=== PATIENT | female | born 2000 | race Caucasian/White ===

== ENCOUNTER 2024-12-26 10:23 | Outpatient (AMB) | payer MEDICAID, SELFPAY ==
[2024-12-26 10:57] VITALS: BP 106/69; PULSE 85; RESP 18; TEMP 36; O2SAT 96; BMI 27.3
--- NOTE | 2024-12-26 10:57 | OBCLNT_ITS ---
Vital Signs 12/26/24 10:57 Height 1.6 m Height Method Stated Weight 69.967 kg Weight Measurement Method Standing Scale BMI 27.3 BP 106/69 Blood Pressure Source Automatic Cuff Blood Pressure Location Left Upper Arm Position Sitting Respiration 18 Pulse 85 Pulse Source Monitor Temp 96.8 F Temp Source Oral Pulse Oximetry (%) 96 Oxygen Delivery Method Room Air Allergies/Home Meds Allergies & Medications Allergies No Known Allergies Allergy (Verified 12/26/24 10:58) Medication Reconciliation [place] 5 mg-325 mg tablet (hydrocodone-acetaminophen) 1 tab PO Q6H PRN pain #30 tabs 10/05/20 [Rx Confirmed 12/26/24] docusate sodium 100 mg capsule (Colace) 100 mg PO BID #60 caps 10/05/20 [Rx Confirmed 12/26/24] Intake Visit Data Collection New Patient or Established: New Patient (never been to [facility]) Reason for Visit:: OBI/transfer Seen by Clinical Staff ONLY (RN/MA): No Instrument Processing Tech Required: No Do You Feel Safe at Home: Yes Authorities Contacted: N/A PCP or OBGYN visit in last 3 months: No Hx Now: Yes Are you currently on any form of Control: No Last menstrual period: 04/26/24 Pain Present Currently: No Pain Scale Used: Schwab-Barcenas/Numerical Pain scale:: 0 Smoking Status Smoking Status: Never smoker Questionnaires Covid-19 Vaccine Questionnaire Has patient been vacinated for Covid-19 Have you been vacinated for Covid-19: Yes PHQ-9 PHQ-2 Over the last 2 weeks, how often have you been bothered by any of the following problems? 1. Little interest or pleasure in doing things: not at all 2. Feeling down, depressed, or hopeless: not at all Total score: 0 PHQ-9 3. Trouble falling or staying asleep, or sleeping too much: Not at all 4. Feeling tired or having little energy: Not at all 5. Poor appetite or overeating: Not at all 6. Feeling bad about yourself - or that you are a failure or have let yourself or your family down: Not at all 7. Trouble concentrating on things, such as reading the newspaper or watching television: Not at all 8. Moving or speaking so slowly that other people could have noticed? - Or the opposite - being so fidgety or restless that you have been moving around a lot more than usual: not at all 9. Thoughts that you would be better off or of hurting yourself in some way: Not at all Total score: 0 If you checked off any problems, how difficult have these problems made it for you to do your work, take care of things at home, or get along with other people?: not difficult at all Source: Developed by Drs. Farhat Galvan, Geno Munoz, Onur Negrete and colleagues, with an educational heri from [employer]. Depression screen completed yes Social History Living Situation History Marital Status: Lives With: Family Housing: House Tobacco History Smoking Status: Never smoker Second Hand Smoke Exposure: No Alcohol History Alcohol Intake: Never Domestic Abuse History Do You Feel Safe at Home: Yes Past Medical History Past Medical History Have you ever been diagnosed with any of the following: Cardiology Problems Congestive Heart Failure: No Respiratory Problems Chronic Obstructive Pulmonary Disease (COPD): No Genital/Urinary Problems Renal Disease: No Reproductive Problems Pelvic Inflammatory Disease: No Endocrine Problems Diabetes Mellitus Type 1: No Diabetes Mellitus Type 2: No Other Problems Anesthesia Reactions: No MRSA: No Clostridium Difficile: No Cancer: No History of Present Illness HPI Narrative 24-year-old 2 para 1 for initial OB appointment. Patient is been followed at her first visit was in [place] and then she moved to [place] and had several visits in [place]. Her last. Was April 26, 2024. This gave a due date of 01/31/25. First ultrasound in [place] was August 13, 2024. Baby measured 15 weeks 5. And this gave due date January 29, 2025. Patient reports movement. Denies signs symptoms of labor. Denies leaking fluid. She reports that she is sure about her due date. Patient denies chronic illness. Denies surgeries. Denies social habits. Her first child 2 years old. That was a normal vaginal at term. Uncomplicated. She reports her periods are monthly lasting 7 days. Patient is currently taking vitamins. She had a Tdap during her care in [place]. No labs were available except RPR showed negative tPA. And on ultrasound showed no previa and normal fluid. father of baby and most of family in [place] OB Initial Visit Menstrual History Menstrual reliability: definite Flow: normal Menstrual regularity: regular Monthly: Yes Age at menarche: 11 On control pills at conception: No Associated symptoms (LMP): Reports nausea and fatigue OB History : 2 Para: 1 Infection History & Risk Evaluation History of STDs: none HIV risk evaluation: low risk Hepatitis B risk evaluation: low risk Patient or partner has history of Genital Herpes: No Varicella/chicken pox status: immunized Genetic Screening & History Symptoms since LMP: tired, increased stress Genetic Screening/Teratology Counseling - Includes patient, baby's father, or anyone in either family with: 1. Patient's age 35 years or older as of estimated date of delivery: No 2. Thalassemia (Sudanese, English, Mediterranean, or Background); MCV less than 80: No 3. Neural Tube Defect (Meningomyelocele, Spina Bifida, or Anencephaly): No 4. Congenital Heart Defect: No 5. Down Syndrome: No 6. Rip-Sachs (Ashkenazi Rastafari, Cajun, Luxembourgish [place]): No 7. Kristin Disease (Ashkenazi Rastafari): No 8. Familial Dysautonomia (Ashkenazi Rastafari): No 9. Sickle Cell Disease or Trait (): No 10. Hemophilia or other blood disorders: No 11. Muscular Dystrophy: No 12. Cystic Fibrosis: No 13. [facility] Chorea: No 14. Mental Retardation/Autism: No 15. Other inherited genetic or chromosomal disorder: No 16. Maternal Metabolic Disorder (EG,TYPE 1 Diabetes, PKU): No 17. Patient or baby's father had a child with defects not listed above: No 18. Recurrent loss or a stillbirth: No 19. Medications (including supplements, vitamins, herbs or otc drugs)/illicit/recreational drugs/alcohol since last menstrual period: No 20. Any other: No Infection History 1. Live with someone with TB or exposed to TB: No 2. Rash or viral illness since last menstrual period: No 3. Hepatitis B,C: No Other (see comments) Source: [employer] Review of Systems Review of Systems Systems Reviewed: All systems reviewed, normal except as documented Constitutional Constitutional: Reports fatigue Gastrointestinal Gastrointestinal: Reports nausea Endocrine Endocrine: Reports fatigue Exam Narrative Physical exam: FH: 35, FHT 151, vertex. no genital lesion, vagina pink, no discharge General Limitations: no limitations General Appearance: alert, in no apparent distress, comfortable, cooperative, healthy appearing, well developed and well groomed Chest Chest inspection: Present normal inspection and symmetric chest wall rise Resp Respiratory exam: Present normal lung sounds bilaterally Card Cardiovascular exam: Present regular rate, normal rhythm and normal heart sounds Abdominal Abdominal exam: Present soft and normal bowel sounds Psych Psychiatric exam: Present normal affect and normal mood Assessment & Plan Diagnosis / Problem List (1) Normal in multigravida in third trimester: Status: Acute Plan Schedule maternal- medicine sono for growth and evaluate anatomy. OB panel today with 1 hour GTT, hemoglobin A1c, carrier screen, NIPT. Discussed labor precautions and kick count. Return week OB check, GBS today Office Procedures OB Clinic LOC & Office Proc's Nursing/Assessment Patient Status: Initial/New Patient OB Clinic Nursing Assessment: BP Monitoring, Medication Reconciliation, Update PMH in EMR and Vital Signs OB Clinic Coordination of Care: Consent,records obtained, informed consent, Education Simp Pt/Fam, Lab and Imaging orders and Staff clarify orders Special Needs: Heart tones New Patient Charge New Patient Point Assignment: [id number] Established Patient Charge Established Patient Point Charge: EP Level 4 (120-155)
== END 2024-12-26 11:15 | disposition home or self-care (01) ==
LOC: HODSOBC 10:23
PROVIDERS: Supervising Provider Advanced Practice Midwife; Visit Provider Advanced Practice Midwife
DX: Z34.83 Encounter for supervision of other normal pregnancy, third trimester (principal); Z3A.00 Weeks of gestation of pregnancy not specified
CPT/HCPCS: 99214; G0463

== ENCOUNTER 2025-01-01 13:02 | Outpatient (AMB) | payer MEDICAID, SELFPAY ==
[2025-01-01 13:22] VITALS: BP 110/68; PULSE 76; RESP 18; TEMP 36.2; O2SAT 99; BMI 27.3
--- NOTE | 2025-01-01 13:22 | OBCLNT_ITS ---
Vital Signs 01/01/25 13:22 Height 1.6 m Height Method Stated Weight 70.023 kg Weight Measurement Method Standing Scale BMI 27.3 BP 110/68 Blood Pressure Source Automatic Cuff Blood Pressure Location Left Upper Arm Position Sitting Respiration 18 Pulse 76 Pulse Source Monitor Temp 97.2 F Temp Source Oral Pulse Oximetry (%) 99 Oxygen Delivery Method Room Air Allergies/Home Meds Allergies & Medications Allergies No Known Allergies Allergy (Verified 01/01/25 13:23) Medication Reconciliation [place] 5 mg-325 mg tablet (hydrocodone-acetaminophen) 1 tab PO Q6H PRN pain #30 tabs 10/05/20 [Rx Confirmed 01/01/25] docusate sodium 100 mg capsule (Colace) 100 mg PO BID #60 caps 10/05/20 [Rx Confirmed 01/01/25] Intake Visit Data Collection New Patient or Established: Established Patient (seen at [facility] within 3 years) Reason for Visit:: obc Seen by Clinical Staff ONLY (RN/MA): No Animal Care Technician Required: No Do You Feel Safe at Home: Yes Authorities Contacted: N/A PCP or OBGYN visit in last 3 months: Yes Date of Last PCP or OBGYN visit: 12/26/24 Hx Now: Yes Are you currently on any form of Control: No Pain Present Currently: No Pain Scale Used: Schwab-Barcenas/Numerical Pain scale:: 0 Smoking Status Smoking Status: Never smoker Questionnaires Covid-19 Vaccine Questionnaire Has patient been vacinated for Covid-19 Have you been vacinated for Covid-19: Yes PHQ-9 PHQ-2 Over the last 2 weeks, how often have you been bothered by any of the following problems? 1. Little interest or pleasure in doing things: not at all 2. Feeling down, depressed, or hopeless: not at all Total score: 0 PHQ-9 3. Trouble falling or staying asleep, or sleeping too much: Not at all 4. Feeling tired or having little energy: Not at all 5. Poor appetite or overeating: Not at all 6. Feeling bad about yourself - or that you are a failure or have let yourself or your family down: Not at all 7. Trouble concentrating on things, such as reading the newspaper or watching television: Not at all 8. Moving or speaking so slowly that other people could have noticed? - Or the opposite - being so fidgety or restless that you have been moving around a lot more than usual: not at all 9. Thoughts that you would be better off or of hurting yourself in some way: Not at all Total score: 0 If you checked off any problems, how difficult have these problems made it for you to do your work, take care of things at home, or get along with other people?: not difficult at all Source: Developed by Drs. Farhat Galvan, Geno Munoz, Onur Negrete and colleagues, with an educational heri from [employer]. Depression screen completed yes Social History Living Situation History Lives With: Family Housing: House Tobacco History Smoking Status: Never smoker Second Hand Smoke Exposure: No Alcohol History Alcohol Intake: Never Domestic Abuse History Do You Feel Safe at Home: Yes Past Medical History Past Medical History Have you ever been diagnosed with any of the following: Cardiology Problems Congestive Heart Failure: No Respiratory Problems Chronic Obstructive Pulmonary Disease (COPD): No Genital/Urinary Problems Renal Disease: No Reproductive Problems Pelvic Inflammatory Disease: No Endocrine Problems Diabetes Mellitus Type 1: No Diabetes Mellitus Type 2: No Other Problems Anesthesia Reactions: No MRSA: No Clostridium Difficile: No Cancer: No Visit OB Visit Log OB Flowsheet Initial Weight: Not Recorded Date -?-?-?-?-?-?-?-?-?-?-?-?- EGA Weight Edema CTX Effacement BP Fundal ht Pres Dilation Effacement Station Visit Note Alb Glu FHR Mov 12/26/24 -?-?-?-?-?-?-?-?-?-?-?-?- 34w 6d 69.967 kg absent absent 106/69 35 cephalic 24-year-old 2 para 1 for first OB visit at [facility] OB clinic. Patient is 35 weeks 5 by LMP and sono. Reports movement. Denies signs symptoms of labor. Baby is active per patient. She has had no complaints thus far. I did a OB panel with NIPT, hemoglobin A1c and 1 hour today. Patient scheduled for MFM appointment with Dr. Mosqueda. Discussed labor precautions and kick c ount. Return week OB check. GBS was done today 151 active 01/01/25 -?-?-?-?-?-?-?-?-?-?-?-?- 35w 5d 70.023 kg absent absent 110/68 35 cephalic fetus active, no labor complaints, la s pending, MFM appointment pending. denies leking or bleeding. fkc bid, f/u on labs and sono. patient prefers rtc 2 week 152 active YAMILEX Calculator Estimated Delivery Date Method Current WG Current Estimate 01/31/25 LMP (Certain) 35w 5d Other Estimates 01/30/25 Ultrasound #1 35w 6d Assessment & Plan Diagnosis / Problem List (1) Normal in multigravida in third trimester: Status: Acute Plan labor precaution, fkc bid. f/u on mfm appointment. continue pnv, rtc 2 week Additional Plan Follow Up: 2 Weeks (obc) Office Procedures OB Clinic LOC & Office Proc's Nursing/Assessment Patient Status: Established Patient OB Clinic Nursing Assessment: BP Monitoring, Medication Reconciliation, Update PMH in EMR and Vital Signs OB Clinic Coordination of Care: Consent,records obtained, informed consent, Education Simp Pt/Fam and Staff clarify orders Special Needs: Heart tones Established Patient Charge Established Patient Point Assignment: 105 Established Patient Point Charge: EP Level 3 (80-115)
== END 2025-01-01 13:46 | disposition home or self-care (01) ==
LOC: HODSOBC 13:02
PROVIDERS: Supervising Provider Advanced Practice Midwife; Visit Provider Advanced Practice Midwife
DX: Z34.83 Encounter for supervision of other normal pregnancy, third trimester (principal); Z3A.35 35 weeks gestation of pregnancy
CPT/HCPCS: 99213; G0463

== ENCOUNTER 2025-01-15 13:22 | Outpatient (AMB) | payer MEDICAID, SELFPAY ==
--- NOTE | 2025-01-15 13:42 | OBCLNT_ITS ---
Vital Signs 01/15/25 13:43 Height 1.6 m Height Method Stated Weight 71.384 kg Weight Measurement Method Standing Scale BMI 27.8 BP 112/65 Blood Pressure Source Automatic Cuff Blood Pressure Location Right Upper Arm Position Sitting Respiration 18 Pulse 72 Pulse Source Monitor Temp 98.3 F Temp Source Temporal Artery Scan Pulse Oximetry (%) 99 Oxygen Delivery Method Room Air Allergies/Home Meds Allergies & Medications Allergies No Known Allergies Allergy (Verified 01/15/25 13:45) Medication Reconciliation vits no.126-ferrous fum 28 mg iron-folic acid 800 mcg tablet (Classic ) tab PO 01/15/25 [History Confirmed 01/15/25] Intake Visit Data Collection New Patient or Established: Established Patient (seen at [facility] within 3 years) Reason for Visit:: obc Do You Feel Safe at Home: Yes Authorities Contacted: N/A PCP or OBGYN visit in last 3 months: Yes Pain Present Currently: No Smoking Status Smoking Status: Never smoker Questionnaires PHQ-9 PHQ-2 Over the last 2 weeks, how often have you been bothered by any of the following problems? 1. Little interest or pleasure in doing things: not at all 2. Feeling down, depressed, or hopeless: not at all Total score: 0 PHQ-9 8. Moving or speaking so slowly that other people could have noticed? - Or the opposite - being so fidgety or restless that you have been moving around a lot more than usual: not at all Source: Developed by Drs. Farhat Galvan, Geno Munoz, Onur Negrete and colleagues, with an educational heri from [employer]. 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 Patient is 35 weeks 5 by LMP and sono. Reports movement. Denies signs symptoms of labor. Baby is active per patient. She has had no complaints thus far. I did a OB panel with NIPT, hemoglobin A1c and 1 hour today. Patient scheduled for MFM appointment with Dr. Mosqueda. Discussed labor precautions and kick count. Return week OB check. GBS was done today 151 active 01/01/25 -?-?-?-?-?-?-?-?-?-?-?-?- 35w 5d 70.023 kg absent absent 110/68 35 cephalic fetus active, no labor complaints, la s pending, MFM appointment pending. denies leking or bleeding. fkc bid, f/u on labs and sono. patient prefers rtc 2 week 152 active 01/15/25 -?-?-?-?-?-?-?-?-?-?-?-?- 37w 5d 71.384 kg absent occasional 112/65 36 cepha lic fetus active. increased pressure, no leaking or bleeding. dicuss+GBS. discuss labor precaution, fkc bid. rtc 1 week ob check 145 active YAMILEX Calculator Estimated Delivery Date Method Current WG Current Estimate 01/31/25 LMP (Certain) 37w 5d Other Estimates 01/30/25 Ultrasound #1 37w 6d Notes Visit Date: 01/15/25 Last Updated by: Dede Adhikari CNM 24 yo . LMP 04/26/24. EDC 01/31/25. GBS+, B+, abs-, rpr;;nr, rub imm, hbsag-,hiv-,HC-, 1hrgtt:107, NIPT and carrier screen- Office Procedures OB Clinic LOC & Office Proc's Nursing/Assessment Patient Status: Established Patient OB Clinic Nursing Assessment: BP Monitoring, Medication Reconciliation, Update PMH in EMR and Vital Signs OB Clinic Coordination of Care: Complex Care and Chronic Disease 1-5, Education Complex Pt/Fam, Consent,records obtained, informed consent and Staff clarify orders Special Needs: Heart tones Established Patient Charge Established Patient Point Assignment: 135 Established Patient Point Charge: EP Level 4 (120-155) Assessment & Plan Diagnosis / Problem List (1) Normal in multigravida in third trimester: Status: Acute Plan discuss labor precaution, fkc bid, discuss + gbs. comfort measure for pelvic pressure, rtc 1 week Additional Plan Follow Up: 1 Week (obc)
[2025-01-15 13:43] VITALS: BP 112/65; PULSE 72; RESP 18; TEMP 36.8; O2SAT 99; BMI 27.8
== END 2025-01-15 14:12 | disposition home or self-care (01) ==
LOC: HODSOBC 13:22
PROVIDERS: Supervising Provider Advanced Practice Midwife; Visit Provider Advanced Practice Midwife
DX: O09.893 Supervision of other high risk pregnancies, third trimester (principal); Z3A.37 37 weeks gestation of pregnancy; O99.820 Streptococcus B carrier state complicating pregnancy
CPT/HCPCS: 81001; 99214; G0463

== ENCOUNTER 2025-01-23 10:27 | Outpatient (AMB) | payer MEDICAID, SELFPAY ==
[2025-01-23 10:34] VITALS: BP 108/69; PULSE 91; RESP 20; TEMP 36.4; O2SAT 96; BMI 28.0
--- NOTE | 2025-01-23 10:34 | OBCLNT_ITS ---
Vital Signs 01/23/25 10:34 Height 1.6 m Height Method Stated Weight 71.894 kg Weight Measurement Method Standing Scale BMI 28.0 BP 108/69 Blood Pressure Source Automatic Cuff Blood Pressure Location Right Upper Arm Position Sitting Respiration 20 Pulse 91 Pulse Source Monitor Temp 97.6 F Temp Source Oral Pulse Oximetry (%) 96 Oxygen Delivery Method Room Air Allergies/Home Meds Allergies & Medications Allergies No Known Allergies Allergy (Verified 01/23/25 10:35) Medication Reconciliation vits no.126-ferrous fum 28 mg iron-folic acid 800 mcg tablet (Classic ) tab PO 01/15/25 [History Confirmed 01/23/25] Intake Visit Data Collection New Patient or Established: Established Patient (seen at [facility] within 3 years) Reason for Visit:: CARE Seen by Clinical Staff ONLY (RN/MA): No Hvac Operations Technician Required: No Do You Feel Safe at Home: Yes Authorities Contacted: N/A PCP or OBGYN visit in last 3 months: Yes Hx Now: Yes Are you currently on any form of Control: No Pain Present Currently: Yes Pain Location: Unable to identify (PELVIC ) Pain Scale Used: Schwab-Barcenas/Numerical Pain scale:: 4 Smoking Status Smoking Status: Never smoker Questionnaires Covid-19 Vaccine Questionnaire Has patient been vacinated for Covid-19 Have you been vacinated for Covid-19: No PHQ-9 PHQ-2 Over the last 2 weeks, how often have you been bothered by any of the following problems? 1. Little interest or pleasure in doing things: not at all 2. Feeling down, depressed, or hopeless: not at all Total score: 0 PHQ-9 3. Trouble falling or staying asleep, or sleeping too much: Not at all 4. Feeling tired or having little energy: Not at all 5. Poor appetite or overeating: Not at all 6. Feeling bad about yourself - or that you are a failure or have let yourself or your family down: Not at all 7. Trouble concentrating on things, such as reading the newspaper or watching television: Not at all 8. Moving or speaking so slowly that other people could have noticed? - Or the opposite - being so fidgety or restless that you have been moving around a lot more than usual: not at all 9. Thoughts that you would be better off or of hurting yourself in some way: Not at all Total score: 0 Source: Developed by Drs. Farhat Galvan, Geno Munoz, Onur Negrete and colleagues, with an educational heri from [employer]. 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 Patient is 35 weeks 5 by LMP and sono. Reports movement. Denies signs symptoms of labor. Baby is active per patient. She has had no complaints thus far. I did a OB panel with NIPT, hemoglobin A1c and 1 hour today. Patient scheduled for MFM appointment with Dr. Mosqueda. Discussed labor precautions and kick count. Return week OB check. GBS was done today 01/01/25 -?-?-?-?-?-?-?-?-?-?-?-?- 35w 5d 70.023 kg 110/68 absent cephalic 35 152 active fetus active, no labor complaints, la s pending, MFM appointment pending. denies leking or bleeding. fkc bid, f/u on labs and sono. patient prefers rtc 2 week 01/15/25 -?-?-?-?-?-?-?-?-?-?-?-?- 37w 5d 71.384 kg 112/65 occasional cephalic 36 145 active fetus active. increased pressure, no leaking or bleeding. dicuss+GBS. discuss labor precaution, fkc bid. rtc 1 week ob check 01/23/25 -?-?-?-?-?-?-?-?-?-?-?-?- 38w 6d 71.894 kg 108/69 occasional cephalic 37 140 active 0 -2 increased pressure, no leaking or bleeding, fetus active/palpated, no ob complaints discuss labor precaution, fkc bid. comfort measure for early labor, review GBS+, rtc 1 week, ER precaution given YAMILEX Calculator Estimated Delivery Date Method Current WG Current Estimate 01/31/25 LMP (Certain) 38w 6d Other Estimates 01/30/25 Ultrasound #1 39w 0d Notes Visit Date: 01/15/25 Last Updated by: Dede Adhikari CNM 24 yo . LMP 04/26/24. EDC 01/31/25. GBS+, B+, abs-, rpr;;nr, rub imm, hbsag-,hiv-,HC-, 1hrgtt:107, NIPT and carrier screen- Office Procedures OB Clinic LOC & Office Proc's Nursing/Assessment Patient Status: Established Patient OB Clinic Nursing Assessment: Medication Reconciliation, Update PMH in EMR and Vital Signs OB Clinic Coordination of Care: Complex Care and Chronic Disease 1-5, Consent,records obtained, informed consent, Education Simp Pt/Fam, Lab and Imaging orders, Results/Orders obtained and Staff clarify orders Special Needs: Heart tones Established Patient Charge Established Patient Point Assignment: 135 Established Patient Point Charge: EP Level 4 (120-155) Assessment & Plan Diagnosis / Problem List (1) Normal in multigravida in third trimester: Status: Acute Plan discuss labor precaution, fkc bid, ER precaution discussed, discuss comfort measure for early labor, reviewed GBS+, hydrate, rtc 1 week ob check Additional Plan Follow Up: 1 Week (obc)
== END 2025-01-23 10:53 | disposition home or self-care (01) ==
LOC: HODSOBC 10:27
PROVIDERS: Supervising Provider Advanced Practice Midwife; Visit Provider Advanced Practice Midwife
DX: Z34.83 Encounter for supervision of other normal pregnancy, third trimester (principal); Z3A.38 38 weeks gestation of pregnancy
CPT/HCPCS: 99214; G0463

== ENCOUNTER 2025-02-03 11:09 | Outpatient (AMB) | payer MEDICAID, SELFPAY ==
[2025-02-03 11:32] VITALS: BP 106/64; PULSE 75; RESP 18; TEMP 36.2; O2SAT 98; BMI 28.3
--- NOTE | 2025-02-03 11:32 | AMB.OBVISIT ---
Vital Signs 02/03/25 11:32 Height 1.6 m Height Method Stated Weight 72.575 kg Weight Measurement Method Standing Scale BMI 28.3 BP 106/64 Blood Pressure Source Automatic Cuff Blood Pressure Location Left Upper Arm Position Sitting Respiration 18 Pulse 75 Pulse Source Monitor Temp 97.2 F Temp Source Oral Pulse Oximetry (%) 98 Oxygen Delivery Method Room Air Allergies/Home Meds Allergies & Medications Allergies No Known Allergies Allergy (Verified 02/03/25 11:33) Medication Reconciliation vits no.126-ferrous fum 28 mg iron-folic acid 800 mcg tablet (Classic ) tab PO 01/15/25 [History Confirmed 02/03/25] Intake Visit Data Collection New Patient or Established: Established Patient (seen at [facility] within 3 years) Reason for Visit:: OBC Seen by Clinical Staff ONLY (RN/MA): 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 1. Little interest or pleasure in doing things: not at all 2. Feeling down, depressed, or hopeless: not at all Total score: 0 PHQ-9 3. Trouble falling or staying asleep, or sleeping too much: Not at all 4. Feeling tired or having little energy: Not at all 5. Poor appetite or overeating: Not at all 6. Feeling bad about yourself - or that you are a failure or have let yourself or your family down: Not at all 7. Trouble concentrating on things, such as reading the newspaper or watching television: Not at all 8. Moving or speaking so slowly that other people could have noticed? - Or the opposite - being so fidgety or restless that you have been moving around a lot more than usual: not at all 9. Thoughts that you would be better off or of hurting yourself in some way: Not at all Total score: 0 If you checked off any problems, how difficult have these problems made it for you to do your work, take care of things at home, or get along with other people?: not difficult at all Source: Developed by Drs. Farhat Galvan, Geno Munoz, Onur Negrete and colleagues, with an educational heri from [employer]. 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 Patient is 35 weeks 5 by LMP and sono. Reports movement. Denies signs symptoms of labor. Baby is active per patient. She has had no complaints thus far. I did a OB panel with NIPT, hemoglobin A1c and 1 hour today. Patient scheduled for MFM appointment with Dr. Mosqueda. Discussed labor precautions and kick count. Return week OB check. GBS was done today 01/01/25 <del>?</del> 35w 5d 70.023 kg 110/68 absent cephalic 35 152 active fetus active, no labor complaints, la s pending, MFM appointment pending. denies leking or bleeding. fkc bid, f/u on labs and sono. patient prefers rtc 2 week 01/15/25 <del>?</del> 37w 5d 71.384 kg 112/65 occasional cephalic 36 145 active fetus active. increased pressure, no leaking or bleeding. dicuss+GBS. discuss labor precaution, fkc bid. rtc 1 week ob check 01/23/25 <del>?</del> 38w 6d 71.894 kg 108/69 occasional cephalic 37 140 active 0 -2 increased pressure, no leaking or bleeding, fetus active/palpated, no ob complaints discuss labor precaution, fkc bid. comfort measure for early labor, review GBS+, rtc 1 week, ER precaution given 02/03/25 <del>?</del> 40w 3d 72.575 kg 106/64 occasional cephalic 39 145 active 1 -1 70 fetus active per patient, irregular uc and pressure, no VB, NO LOF IOL 02/09/25. NST/BPP today. discuss labor precaution, fkc bid. discuss danger s/s/ER precaution YAMILEX Calculator Estimated Delivery Date Method Current WG Current Estimate 01/31/25 LMP (Certain) 40w 3d Other Estimates 01/30/25 Ultrasound #1 40w 4d Notes Visit Date: 01/15/25 Last Updated by: Dede Adhikari, RADHA 24 yo . LMP 04/26/24. EDC 01/31/25. GBS+, B+, abs-, rpr;;nr, rub imm, hbsag-,hiv-,HC-, 1hrgtt:107, NIPT and carrier screen- Office Procedures OB Clinic LOC & Office Proc's Nursing/Assessment Patient Status: Established Patient OB Clinic Nursing Assessment: Medication Reconciliation, Update PMH in EMR and Vital Signs OB Clinic Coordination of Care: Education Complex Pt/Fam, Consent,records obtained, informed consent, Lab and Imaging orders and Staff clarify orders Special Needs: Heart tones Established Patient Charge Established Patient Point Assignment: 110 Established Patient Point Charge: EP Level 3 (80-115) Assessment & Plan Diagnosis / Problem List (1) Normal in multigravida in third trimester: Status: Acute Plan schedule IOL 02/09/25, discuss labor precaution, fkc bid. discuss danger s/s and er precaution. rtc 1 week obc Additional Plan Follow Up: 1 Week (obc)
== END 2025-02-03 12:21 | disposition home or self-care (01) ==
LOC: HODSOBC 11:09
PROVIDERS: Supervising Provider Advanced Practice Midwife; Visit Provider Advanced Practice Midwife
DX: O09.893 Supervision of other high risk pregnancies, third trimester (principal); Z3A.40 40 weeks gestation of pregnancy; O48.0 Post-term pregnancy
CPT/HCPCS: 99213; G0463

== ENCOUNTER 2025-02-04 11:05 | Outpatient (CLI) | payer MEDICAID, SELFPAY ==
[2025-02-04 11:14] VITALS: PULSE 80; O2SAT 96
--- NOTE | 2025-02-04 11:16 | XR_ITS ---
Examination: Complete OB ultrasound greater than 14 weeks Date and time of exam: February 04, 2025 1137 hours INDICATIONS: Pelvic contractions beginning 2 days ago, unknown presentation Findings: Viable intrauterine single fetus with single amniotic sac presentation cephalic Cardiac motion 136 BPM Placenta posterior grade 3 Umbilical cord insertion 3 vessel seen Amniotic fluid index 6.3 cm spine maternal left Cervix 3.3 cm Ovaries obscured by bowel gas. Composite estimated gestational age based on BPD, head circumference, abdominal circumference, femur length is 36 weeks 0 days Estimated weight 2768 g. Survey of intracranial anatomy, spinal anatomy, abdominal anatomy, four-chamber heart performed with no abnormalities identified. Impression: Viable intrauterine gestation cephalic presentation.
[2025-02-04 11:19] VITALS: PULSE 85; O2SAT 96
[2025-02-04 11:23] VITALS: BP 112/65; PULSE 77; RESP 18; RESP 97; TEMP 36.9; O2SAT 96; BMI 29.9
[2025-02-04 11:24] VITALS: PULSE 84; O2SAT 96
[2025-02-04 11:28] VITALS: BP 112/65; PULSE 77
[2025-02-04 11:29] VITALS: PULSE 77; O2SAT 96
--- NOTE | 2025-02-04 12:49 | XR_ITS ---
Examination: Biophysical profile, ultrasound Date and time of exam: February 04, 2025 1254 hours INDICATIONS: Diagnosis post dates, history pelvic contractions Technique: Multiple transabdominal sonographic images of the pelvis abdomen obtained. Attention is directed to the breathing movement, gross body movement, amniotic fluid volume and tone. Findings: Amniotic fluid index 7.0 cm Total biophysical profile is 8 of 8. breathing movement is 2. Gross body movement is 2. tone is 2. Qualitative amniotic fluid volume is 2 Impression: Biophysical profile is 8 of 8.
== END 2025-02-04 13:15 | disposition home or self-care (01) ==
LOC: S4S1 11:10 → S4SX 11:11
PROVIDERS: Referring Provider Advanced Practice Midwife; Visit Provider Advanced Practice Midwife
DX: Z34.83 Encounter for supervision of other normal pregnancy, third trimester (principal); Z36.9 Encounter for antenatal screening, unspecified; Z3A.36 36 weeks gestation of pregnancy
CPT/HCPCS: 59025; 76805; 76819

== ENCOUNTER 2025-02-07 18:31 | Inpatient (IN) | payer MEDICAID, SELFPAY ==
[2025-02-07] VITALS (13 sets, daily range): BP systolic 111–113; BP diastolic 58–65; PULSE 71–88; RESP 16–96; TEMP 36.4–36.7; O2SAT 96–97; BMI 28.8
--- NOTE | 2025-02-07 18:43 | XR_ITS ---
Examination: Biophysical profile, ultrasound Date and time of exam: February 07, 2025 1956 hours INDICATIONS: Post dates Technique: Multiple transabdominal sonographic images of the pelvis abdomen obtained. Attention is directed to the breathing movement, gross body movement, amniotic fluid volume and tone. Findings: Amniotic fluid index 5.3 cm Total biophysical profile is 8 of 8. breathing movement is 2. Gross body movement is 2. tone is 2. Qualitative amniotic fluid volume is 2 Impression: Biophysical profile is 8 of 8.
[2025-02-07] MEDS: RINGERS LACTATED 1000 ML 1,000 ML 100 ML IV (21:30)
[2025-02-07 21:46] LABS: Basophils % (Auto) 0 % (0-2.5); Eosinophils # (Auto) 0.1 Thou/mm3 (0.0-0.5); Eosinophils % (Auto) 1 % (0-10); Hematocrit 35.5 % (36.0-46.0); Hemoglobin 12.9 g/dL (12.0-16.0); Immature Granulocytes % (Auto) 1 % (0-0); Immature Granulocytes Auto 0.07 Thou/mm3 (0.00-0.00); Lymphocytes # (Auto) 1.2 Thou/mm3 (1.0-4.8); Lymphocytes % (Auto) 17 % (10-50); Mean Corpuscular HGB Conc 36.3 g/dl (31.0-37.0); Mean Corpuscular Hemoglobin 32.3 pg (25.0-35.0); Mean Corpuscular Volume 89 fL (80-100); Monocytes # (Auto) 0.7 Thou/mm3 (0.0-0.8); Monocytes % (Auto) 10 % (0-12); Neutrophils # (Auto) 5.4 Thou/mm3 (1.8-7.7); Neutrophils % (Auto) 72 % (37-80); Nucleated Red Blood Cell % 0 /100 WBC (0); Platelet Count 206 Thou/mm3 (140-440); White Blood Count 7.5 Thou/mm3 (3.6-11.0)
[2025-02-07 21:57] LABS: Amphetamine/Metham Scrn,Ur OB Negative (Negative); Benzoylecgonine Screen, Ur OB Negative (Negative); Opiate Screen,Urine OB Negative (Negative); THC Screen,Urine OB Negative (Negative)
[2025-02-07 22:24] LABS: Syphilis Nonreactive (Nonreactive)
[2025-02-07] MEDS: MISOPROSTOL 50 mCg TABLET PO (22:28)
[2025-02-08] VITALS (107 sets, daily range): BP systolic 95–152; BP diastolic 53–85; PULSE 49–187; RESP 16–19; TEMP 36.7–37; O2SAT 86–100
[2025-02-08] MEDS: fentaNYL CIT INJ 50 mCg/ML AMP 2ML 100 MCG IVP ×2 (02:30→03:51)
[2025-02-08] MEDS: Ampicillin Inj 2,000 MG in SODIUM CHLORIDE 0.9% (POP) 100 ML 200 MG IV (03:08)
[2025-02-08] MEDS: MISOPROSTOL 50 mCg TABLET PO (03:10)
[2025-02-08] MEDS: Ampicillin Inj 1,000 MG in SODIUM CHLORIDE 0.9% (Popper) 50 ML 50 MG IV (06:42)
[2025-02-08] MEDS: MINERAL OIL 30 ML UDC TOP (07:22)
[2025-02-08] MEDS: IBUPROFEN TAB 400 MG TABLET 800 MG PO ×2 (07:22→20:04)
[2025-02-08] MEDS: BENZO/LANO/ALOE (Dermoplast) 60 GM CAN 1 SPRAY TOP (07:22)
[2025-02-08] MEDS: MISOPROSTOL 200 mCg TABLET 800 MCG PR (07:23)
[2025-02-08] MEDS: OXYTOCIN INJ 10 UNIT/ML VIAL IM (07:23)
[2025-02-08] MEDS: OXYTOCIN in NS 20 units 20 UNIT/1,000 ML BAG 125 UNIT IV (07:24)
[2025-02-08] MEDS: TRANEXAMIC ACID 1,000 MG IVPB 1,000 MG/100 ML BAG 200 MG IV (07:37)
--- NOTE | 2025-02-08 08:10 | ESHP_ITS ---
Documentation for date of: 02/08/25 OB Labor/Induct. HPI History of Present Illness Chief complaint: IOL for oligo : 2 Para: 1 Term pregnancies: 1 pregnancies: 0 Living children: 1 History of Abortions: Spontaneous and Elective: 0 History of Vaginal deliveries: 1 History of sections: No History of : No Date of last menstrual period: 04/26/24 YAMILEX: 01/31/25 Gestational Age (weeks): 41 Gestational Age (days): 1 Gestational age based on last menstrual period: 41 Indication for induction: post dates (oligo) History of present illness: This is a 24-year-old 2 para 1 admit to labor and delivery for induction of labor. Patient is been followed with this at [facility]. She got some early care in [place] prior to first visit. Patient's first visit at [facility] was after 30 weeks. Last period April 26, 2024. Estimated due date May 03, 2025. Patient also had an anatomy scan that showed normal growth and unconfirmed EDC. Denies social habits. Denies surgery. Denies chronic illness. Patient is B+, antibody screen negative, RPR nonreactive, rubella immune, hepatitis B negative, HIV negative, hep C negative, GC and Chlamydia were negative. 1 hour Glucola and A1c were normal. NIPT and carrier screen negative. And GBS positive History of Present Dating criteria: LMP confirmed by 2nd trimester US Adequate Care: Yes Ultrasounds: normal mid trimester US Obstetrical complications: none Medical complications: none Labs Labs: Positive: Rubella Titre and Group Beta Strep, Negative: RPR, Hepatitis B, HIV, Chlamydia and Gonorrhea and Unknown: Herpes Type 1, Herpes Type 2 and Covid-19 Review of Systems Review of Systems Systems Reviewed: All systems reviewed, normal except as documented Past Medical History Surgical History SURGICAL: Negative Section Meds Home Medications and Allergies Home Medications ?Medication ?Instructions ?Recorded ?Confirmed ?Type vits no.126-ferrous fum 1 tab PO .q day 01/1502/07/25 History 28 mg iron-folic acid 800 mcg tablet (Classic ) Allergies Allergy/AdvReac Type Severity Reaction Status Date / Time No Known Allergies Allergy Verified 02/07/25 18:41 OB Exam Physical Exam Vital signs: Temp Pulse Resp BP Pulse Ox 98.4 F 72 16 118/62 98 02/08/25 00:03 02/08/25 07:56 02/08/25 00:03 02/08/25 07:56 02/08/25 08:06 Narrative: Normal heart rate and rhythm. Lungs clear no wheezes. Gravid abdomen. Gynecoid pelvis. Estimated weight 6 and half pounds. Vaginal examination was 60%, 3, posterior. -3. Vertex. Bag water intact. YENI was 5. 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
--- NOTE | 2025-02-08 08:15 | PD.LDDELS ---
Data ([place]) Data Hx Section: No : 2 Term: 1 : 0 Livin Abortions: Spontaneous & Theraputic: 0 Delivery Data ([place]) Labor Data Initiation of labor: Induction Induction/Augmentation Agent: Cytotec-PO ROM date: 02/08/25 ROM time: 06:51 Amniotic membrane rupture type: Artificial Amniotic fluid description: Clear Delivery Data EDC: 01/31/25 EDC calculated by:: LMP/early US confirmation Date of arrival to unit: 02/07/25 Time of arrival to unit: 20:16 Onset of labor date: 02/08/25 Onset of labor time: 03:00 Complete dilation date: 02/08/25 Complete dilation time: 06:45 [place] delivery date: 02/08/25 [place] delivery time: 06:58 Gestational age (weeks): 41 Gestational age (days): 1 Placenta delivery date: 02/08/25 Placenta delivery time: 07:03 Stage 1 total time: Labor - Stage 1 Duration 3 hours and 45 minutes Delivered by: Dede Adhikari Delivery nurse: Humera Shelby RN [place] nurse: Joie Turcios RN Traffic Line 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 at delivery: No Support person(s) at delivery: FOB Other staff at delivery: Grace Haines RN Delivery Method Delivery method: Normal Vaginal Delivery Presentation: Vertex position: OA Anesthesia Type Anesthesia Type: Epidural Delivery Room Medications Delivery room medications: Pitocin 10 u IM, Pitocin 20 u IV and Cytotec 800 NH Placenta Placenta delivery description: Spontaneous (placenta inspected, intact) Cord blood sent to lab: Yes cord blood collection: Cord Blood Type Episiotomy Episiotomy description: None Lacerations #1: Periurethral: mid and to right Perineal repair Sutures used for repair: 3.0 Vicryl EBL Estimated blood loss (ml): 400 Umbilical Cord cord description: 3 Vessels Data ([place]) Mcca[place] Data order: 1 's gender: Female Identification band number: [id number] weight (gms): 2900 g Weight (pounds): 6 lbs and 6.3 ozs 1 minute: 9 5 minutes: 9
[2025-02-08 15:43] LABS: Basophils % (Auto) 0 % (0-2.5); Eosinophils # (Auto) 0.1 Thou/mm3 (0.0-0.5); Eosinophils % (Auto) 0 % (0-10); Hematocrit 32.4 % (36.0-46.0); Hemoglobin 11.7 g/dL (12.0-16.0); Immature Granulocytes % (Auto) 1 % (0-0); Immature Granulocytes Auto 0.07 Thou/mm3 (0.00-0.00); Lymphocytes # (Auto) 1.3 Thou/mm3 (1.0-4.8); Lymphocytes % (Auto) 10 % (10-50); Mean Corpuscular HGB Conc 36.1 g/dl (31.0-37.0); Mean Corpuscular Hemoglobin 32.1 pg (25.0-35.0); Mean Corpuscular Volume 89 fL (80-100); Monocytes % (Auto) 8 % (0-12); Neutrophils # (Auto) 10.3 Thou/mm3 (1.8-7.7); Neutrophils % (Auto) 81 % (37-80); Nucleated Red Blood Cell % 0 /100 WBC (0); Platelet Count 178 Thou/mm3 (140-440); RDW Standard Deviation 41.1 fL (36.4-46.3); Red Blood Count 3.64 Miln/mm3 (4.00-5.20); White Blood Count 12.8 Thou/mm3 (3.6-11.0)
[2025-02-08] MEDS: DOCUSATE SOD 100 MG CAPSULE PO (20:03)
[2025-02-09] VITALS: BP 111/69; PULSE 71; RESP 17; TEMP 36.7
[2025-02-09 03:45] VITALS: BP 112/68; PULSE 57; RESP 16; TEMP 36.4
[2025-02-09 07:39] VITALS: BP 105/60; PULSE 69; RESP 17; TEMP 36.8; O2SAT 97
[2025-02-09] MEDS: DOCUSATE SOD 100 MG CAPSULE PO (08:09)
--- NOTE | 2025-02-09 10:03 | ESPR_ITS ---
Subjective Subjective Interval history: No complaints of pain. No dizziness. Bonding breast-feeding Exam Vital Signs Temp Pulse Resp BP Pulse Ox O2 Del Method 98.2 F 69 17 105/60 97 Room Air 02/09/25 07:39 02/09/25 07:39 02/09/25 07:39 02/09/25 07:39 02/09/25 07:39 02/09/25 07:39 Narrative Exam Vital signs stable afebrile. Soft. Fundus firm below the umbilicus. Perineum intact no swelling. Small lochia. Uterus well involuted. Negative Homans' sign. 2+ DTRs Objective Labs 02/08/25 15:29 Labs: Laboratory Results - last 24 hr 02/08/25 15:29 WBC 12.8 H D RBC 3.64 L Hgb 11.7 L Hct 32.4 L MCV 89 MCH 32.1 MCHC 36.1 RDW Std Deviation 41.1 Plt Count 178 Neut % (Auto) 81 H Lymph % (Auto) 10 [place] % (Auto) 8 Eos % (Auto) 0 Baso % (Auto) 0 Neut # (Auto) 10.3 H Lymph # (Auto) 1.3 [place] # (Auto) 1.0 H Eos # (Auto) 0.1 Baso # (Auto) 0.0 Immature Gran # (Auto) 0.07 H Absolute Nucleated RBC 0.00 Immature Gran % 1 H Nucleated RBC % 0 Assessment & Plan Problem List (1) Normal labor and delivery: Status: Acute Assessment Comment Assessment comment: 24 hr pp Plan Comment Plan 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 Continue vitamins and iron. Tylenol ibuprofen for pain. Discussed danger signs and symptoms and signs symptoms of infection. ER precautions with parameters. Continue comfort measures for labial laceration. Increase fluids. No sex. Return in 3 weeks visit Time Spent With Patient Time: Total time spent is greater than 50% in coordination of care (as documented) at patient's floor/unit and/or counseling patient:
--- NOTE | 2025-02-09 10:04 | PD.LDDS ---
DS: Providers Provider Date of admission: 02/07/25 20:16 Primary care physician: Physician No Primary/Family Admitting Provider: Leo Ray MD Attending Provider on Admission: Dede Adhikari CNM Consults: 02/08/25 08:41 Referral Routine Comment: Attending Provider on DC: Dede Adhikari CNM Discharging Provider: Dede Adhikari CNM DS: Diagnosis Problem List Completed Was Problem List Reviewed/Reconciled?: Yes Summary/Hosp Course Brief History: This is a 24-year-old 2 para 1 admit to labor and delivery for induction of labor. Patient is been followed with this at [facility]. She got some early care in [place] prior to first visit. Patient's first visit at [facility] was after 30 weeks. Last period April 26, 2024. Estimated due date May 03, 2025. Patient also had an anatomy scan that showed normal growth and unconfirmed EDC. Denies social habits. Denies surgery. Denies chronic illness. Patient is B+, antibody screen negative, RPR nonreactive, rubella immune, hepatitis B negative, HIV negative, hep C negative, GC and Chlamydia were negative. 1 hour Glucola and A1c were normal. NIPT and carrier screen negative. And GBS positive Peripartum Data Delivery Method: Normal Vaginal Delivery Episiotomy Description: None Laceration Description: yes (bilat PU,small vag) complications: none Time Spent with Patient Time attestation: Total time spent providing and/or coordinating discharge services: Exam Vital Signs Temp Pulse Resp BP Pulse Ox O2 Del Method 98.2 F 69 17 105/60 97 Room Air 02/09/25 07:39 02/09/25 07:39 02/09/25 07:39 02/09/25 07:39 02/09/25 07:39 02/09/25 07:39 Discharge Plan Plan Patient Disposition: HOME (Self Care) Patient condition on transfer: Stable Prescriptions/Referrals Prescriptions/Med Rec: No Action Classic 28 mg iron- 800 mcg tablet 1 tab PO .q day Referrals: No Primary/Family,Physician [Primary Care Provider] - Patient/Caregiver Discharge Instructions Meds to Beds: No Discharge Activity: resume usual activities Print Language: Taiwanese Activity Restrictions/Additional Instructions: Discharge home with baby. Continue vitamins and iron. Tylenol ibuprofen for pain. Danger signs. Return in 3 weeks visit. Discussed ER. Precautions and parameters. And discussed signs symptoms of infection. Discussed comfort measures for labial laceration. Increase fluids and rest and return in 3 weeks visit Stand Alone Forms: [facility] Award Info., Patient Portal Info Letter Discharge Order Discharge Orders: Discharge (Routine); Ordered 02/09/25 Ordered By: Dede Adhikari Planned Discharge Date 02/09/25
== END 2025-02-09 14:48 | disposition home or self-care (01) | DRG 560 ==
LOC: S4SX 02-08 08:07 → S4NX 02-09 05:42 → S4SX 02-10 06:02
PROVIDERS: Admitting Provider Specialist; Visit Provider Advanced Practice Midwife
DX: O48.0 Post-term pregnancy (principal); Z37.0 Single live birth; Z3A.41 41 weeks gestation of pregnancy; O99.824 Streptococcus B carrier state complicating childbirth; O70.0 First degree perineal laceration during delivery
CPT/HCPCS: 36415; 59025; 59409; 76819; 80307; 85025; 86703; 86762; 86780; 86850; 86900; 86901; 87340; 94762; J0290; J2590; J2795; J3010; J3490; J7050; J7120; S0191; A9270

== ENCOUNTER 2025-03-13 08:52 | Outpatient (AMB) | payer MEDICAID, SELFPAY ==
--- NOTE | 2025-03-13 08:53 | AMB.OBPP ---
Vital Signs 03/13/25 10:04 Weight 67.132 kg Weight Measurement Method Standing Scale BP 103/66 Blood Pressure Source Automatic Cuff Blood Pressure Location Right Upper Arm Position Sitting Respiration 17 Pulse 93 Pulse Source Monitor Temp 97.7 F Temp Source Temporal Artery Scan Pulse Oximetry (%) 95 Oxygen Delivery Method Room Air Allergies/Home Meds Allergies & Medications Allergies No Known Allergies Allergy (Verified 03/13/25 10:04) Medication Reconciliation vits no.126-ferrous fum 28 mg iron-folic acid 800 mcg tablet (Classic ) 1 tab PO .q day 01/15/25 [History Confirmed 03/13/25] Intake Visit Data Collection New Patient or Established: Established Patient (seen at [facility] within 3 years) Reason for Visit:: 3 week pp Seen by Clinical Staff ONLY (RN/MA): No Senior Manager Mmcoe Required: No Do You Feel Safe at Home: Yes Authorities Contacted: N/A PCP or OBGYN visit in last 3 months: Yes Date of Last PCP or OBGYN visit: 02/09/25 Hx Now: No Are you currently on any form of Control: No Pain Present Currently: No Pain Scale Used: Schwab-Barcenas/Numerical Pain scale:: 0 Smoking Status 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 Past Medical History: No Hx Neurological Disorders, No Hx Hypothyroidism, No Hx Hyperthyroidism, No Hx Breast Cancer, No Hx Cardiac Disorders, No Hx Hypertension, No Hx Cancer, No Hx Blood Disorders, No Hx Anemia, No Hx Gastrointestinal Disorders, No Hx Renal Disease, No Hx Deep Vein Thrombosis, No Hx Diabetes Mellitus Type 1, No Hx Diabetes Mellitus Type 2, No Hx Tubal Ligation, No Hx Hysterectomy and No Psychiatric Problems Questionnaires Covid-19 Vaccine Questionnaire Has patient been vacinated for Covid-19 Have you been vacinated for Covid-19: No Social History Living Situation History Marital Status: Lives With: Family Housing: Apartment Tobacco History Smoking Status: Never smoker Second Hand Smoke Exposure: No Alcohol History Alcohol Intake: Never Domestic Abuse History Do You Feel Safe at Home: Yes EPDS - PP Depression Screening [place] Pospartum Depression Screen I have been able to laugh and see the funny side of things: (0) As much as I always could I have looked forward with enjoyment to things: (0) As much as I ever did I have blamed myself unnecessarily when things went wrong: (0) No, never I have been anxious or worried for no good reason: (0) No, not at all I have felt scared or panicky for no very good reason: (0) No, not at all Things have been getting on top of me: (0) No, I have been coping as well as ever I have been so unhappy that I have had difficulty sleeping: (0) No, not at all I have felt sad or miserable: (0) No, not at all I have been so unhappy that I have been crying: (0) No, never The thought of harming myself has occurred to me: (0) Never EPDS completed yes Care OB Visit Log OB Flowsheet Initial Weight: Not Recorded Date <del>?</del> EGA Weight BP Alb Glu CTX Pres Fundal ht FHR Mov Dilation Station Effacement Hx Notes Visit Note 12/26/24 <del>?</del> 34w 6d 69.967 kg 106/69 absent cephalic 35 151 active 24-year-old 2 para 1 for first OB visit at [facility]. Patient is 35 weeks 5 by LMP and sono. Reports movement. Denies signs symptoms of labor. Baby is active per patient. She has had no complaints thus far. I did a OB panel with NIPT, hemoglobin A1c and 1 hour today. Patient scheduled for MFM appointment with Dr. Mosqueda. Discussed labor precautions and kick count. Return week OB check. GBS was done today 01/01/25 <del>?</del> 35w 5d 70.023 kg 110/68 absent cephalic 35 152 active fetus active, no labor complaints, la s pending, MFM appointment pending. denies leking or bleeding. fkc bid, f/u on labs and sono. patient prefers rtc 2 week 01/15/25 <del>?</del> 37w 5d 71.384 kg 112/65 occasional cephalic 36 145 active fetus active. increased pressure, no leaking or bleeding. dicuss+GBS. discuss labor precaution, fkc bid. rtc 1 week ob check 01/23/25 <del>?</del> 38w 6d 71.894 kg 108/69 occasional cephalic 37 140 active 0 -2 increased pressure, no leaking or bleeding, fetus active/palpated, no ob complaints discuss labor precaution, fkc bid. comfort measure for early labor, review GBS+, rtc 1 week, ER precaution given 02/03/25 <del>?</del> 40w 3d 72.575 kg 106/64 occasional cephalic 39 145 active 1 -1 70 fetus active per patient, irregular uc and pressure, no VB, NO LOF IOL 02/09/25. NST/BPP today. discuss labor precaution, fkc bid. discuss danger s/s/ER precaution YAMILEX Calculator Estimated Delivery Date Method Current WG Current Estimate 01/31/25 LMP (Certain) 45w 6d Other Estimates 01/30/25 Ultrasound #1 46w 0d Notes Visit Date: 01/15/25 Last Updated by: Dede Fatima CNM 24 yo . LMP 04/26/24. EDC 01/31/25. GBS+, B+, abs-, rpr;;nr, rub imm, hbsag-,hiv-,HC-, 1hrgtt:107, NIPT and carrier screen- HPI Interval History: 24-year-old 2 para 2 for 3-week exam patient had a vaginal delivery 02/08/2025. Patient was induced at 41 weeks. Breast and bottlefeeding. Sibling is adjusting now. Father baby involved. Patient has good support system she has no depression. And she is happy. She has no complaints. Patient will use condoms for now. Partner plans to get a vasectomy. 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 Exam Narrative Physical exam: fundus firm, below umb, perineum well healed, no s/s of infection, euthyroid, breast soft, NT,no mastitis External exam: Present normal external exam Speculum exam: Present normal speculum exam Bimanual exam: Present normal bimanual exam Office Procedures OB Clinic LOC & Office Proc's Nursing/Assessment Patient Status: Established Patient OB Clinic Nursing Assessment: Medication Reconciliation, Update PMH in EMR and Vital Signs OB Clinic Coordination of Care: Complex Care and Chronic Disease 1-5, Consent,records obtained, informed consent, Education Simp Pt/Fam and Staff clarify orders Established Patient Charge Established Patient Point Assignment: 85 Post Follow-up Visit Post Follow up Visit: Yes Assessment & Plan Diagnosis / Problem List (1) Routine Follow-Up: Plan Discussed control options. Reviewed condom compliance and effectiveness. Okay to walk small distances. Reviewed diet. Increase fluids. Continue vitamins. Discussed latching and breast-feeding positions. Return in 4 weeks or as needed for change in contraception Care Reviewed delivery summary and any complications: Yes Uterus involuted to: 3 below umb Perineal / incision healing noted: Yes Screened for depression: Yes Depression counseling provided: No Discussed family planning & contraception: Yes Contraception planned: condom Counseling on safe resumption of sexual activity: Yes Discussed and concerns (describe), provided support: Yes Referred to software product specialist: No Counseled on good nutrition, hydration, and self care: Yes Reviewed vaccine status: No Chronic & current problems reconciled on problem list: Yes care discussed; questions answered: feeding Follow up: routine/prn Additional counseling & anticipatory guidance provided: Review condoms. Discussed compliance and effectiveness. Increase fluids. Increase proteins in the diet and small frequent meals. Walk 40 minutes a day. Continue vitamins. Discussed latching and breast-feeding. And I reviewed Depo use and vasectomy. Patient will return if she decides to use Depo. (FP) Tobacco Smoking Status: Never smoker
[2025-03-13 10:04] VITALS: BP 103/66; PULSE 93; RESP 17; TEMP 36.5; O2SAT 95
== END 2025-03-13 09:53 | disposition home or self-care (01) ==
LOC: HODSOBC 08:52
PROVIDERS: PCP Advanced Practice Midwife; Referring Provider Advanced Practice Midwife; Supervising Provider Advanced Practice Midwife; Visit Provider Advanced Practice Midwife
DX: Z39.2 Encounter for routine postpartum follow-up (principal); Z39.1 Encounter for care and examination of lactating mother